=== PATIENT | female | born 1995 | race Hispanic/Latino ===

== ENCOUNTER 2017-03-06 19:28 | Inpatient (IN) | payer MEDICAID ==
[~2017-03-06] VITALS: Ht 152.4 cm; Wt 70.3 kg
[2017-03-06 07:49] VITALS: BP 123/70
[2017-03-06] MEDS ORDERED: MORPHINE SULFATE 10 MG/ML 1ML SYG IM PRN (19:45)
[2017-03-06] MEDS ORDERED: PREN-18 PO (19:56)
[2017-03-06] MEDS ORDERED: IRON1TAB63 PO (19:57)
[2017-03-06] MEDS ORDERED: LACTATED RINGERS 1000ML 1,000 ML IV ONE (19:59)
[2017-03-06 20:20] VITALS: BP 110/70
[2017-03-06] MEDS: DINOPROSTONE 10 MG VAGINAL SUPP VG SCH (20:46)
[2017-03-06] MEDS: LACTATED RINGERS 1000ML 1,000 ML IV PRN (20:47)
[2017-03-06 20:58] LABS: MEAN CORPUSCULAR HEMOGLOBIN 32.7 pg (27.0-33.0); MEAN CORPUSCULAR HGB CONC 34.7 g/dL (32.0-36.0); MEAN CORPUSCULAR VOLUME 94.2 fL (79-99); PLATELET COUNT (AUTO) 211 K/uL (130-400); RED CELL DISTRIBUTION WIDTH 13.3 % (11.0-15.5); WHITE BLOOD COUNT (AUTO) 9.8 K/uL (4.8-10.8)
[2017-03-06 21:01] LABS: APPEARANCE,URINE Clear (CLEAR); BILIRUBIN,URINE Negative (NEGATIVE); COLOR,URINE Yellow (YELLOW); GLUCOSE, URINE (UA) Negative (NEGATIVE); KETONES,URINE Negative (NEGATIVE); LEUKOCYTE ESTERASE ,URINE Moderate (NEGATIVE); NITRATE,URINE Negative (NEGATIVE); OCCULT BLOOD,URINE Negative (NEGATIVE); PROTEIN,URINE Negative (NEGATIVE); UROBILINOGEN,URINE 0.2 mg/dL (0.2-1.0)
[2017-03-06 21:21] LABS: BACTERIA,URINE Rare /HPF (None Seen); RBC,URINE 0-1 /HPF (0-1); SQUAMOUS EPITHELIAL CELL,UR Rare /LPF (0-2)
[2017-03-07] MEDS: LACTATED RINGERS 1000ML 1,000 ML IV PRN (03:19)
[2017-03-07 06:59] LABS: RAPID PLASMA REAGIN NONREACTIVE (NONREACTIVE)
[2017-03-07] MEDS ORDERED: OXYTOCIN 10 USP UNITS/ML 20 UNIT in LACTATED RINGERS 1000ML 1,000 ML IV SCH (09:00)
[2017-03-07] MEDS ORDERED: LACTATED RINGERS 1000ML 1,000 ML IV ONE (09:51)
[2017-03-07] MEDS ORDERED: OXYTOCIN 10 USP UNITS/ML ONE ×2 (09:51→21:19)
[2017-03-07] MEDS ORDERED: BUTORPHANOL TARTRATE 2 MG/ML IVP PRN (10:45)
[2017-03-07] MEDS ORDERED: BUTORPHANOL TARTRATE 2 MG/ML ONE (10:52)
[2017-03-07] MEDS ORDERED: EPHEDRINE SULFATE 50 MG/ML AMPULE IVP PRN (12:45)
[2017-03-07] MEDS ORDERED: LACTATED RINGERS 500 ML 500 ML IV PRN (12:45)
[2017-03-07] MEDS ORDERED: NALOXONE HCL 0.4 MG/1 ML ML IV PRN (12:45)
[2017-03-07] MEDS ORDERED: MISOPROSTOL 200 MCG TABLET ONE (17:21)
[2017-03-07] MEDS ORDERED: LIDOCAINE HCL 1% 20 ML VIAL ONE (17:21)
[2017-03-07] MEDS ORDERED: METHYLERGONOVINE MALEATE 0.2 MG/1 ML ML ONE (17:22)
[2017-03-07] MEDS ORDERED: CARBOPROST TROMETHAMINE 250 MCG/ML AMP IM ONE (17:22)
[2017-03-07] MEDS ORDERED: CEFAZOLIN SODIUM 1 GM VIAL ONE (17:37)
[2017-03-07] MEDS ORDERED: CALDOLOR 800MG+NS 250ML 250 ML IV ONE (17:37)
[2017-03-07] MEDS ORDERED: CEFAZOLIN SODIUM 1 GM VIAL IVP PRN (17:45)
[2017-03-07] MEDS ORDERED: LACTATED RINGERS 1000ML 1,000 ML IV SCH (17:45)
[2017-03-07] MEDS ORDERED: MIDAZOLAM HCL 1 MG/ML 2ML VIAL ONE (17:48)
[2017-03-07] MEDS ORDERED: EPHEDRINE-NS PF 50MG/5ML SYRINGE IV ONE (17:49)
[2017-03-07] MEDS ORDERED: DURAMORPH PF1 MG/ML 10ML AMP IV ONE (17:55)
[2017-03-07] MEDS ORDERED: OXYTOCIN 10 UNIT/1ML 10ML VIAL ONE (17:59)
[2017-03-07] MEDS ORDERED: ONDANSETRON HCL 4 MG/2 ML VIAL ONE (18:18)
[2017-03-07] MEDS ORDERED: OXYTOCIN-LR 20 UNITS/1000 ML 1,000 ML IV PRN (18:34)
[2017-03-07] MEDS ORDERED: DEXTROSE 5 %-0.45 % NACL 1,000 ML IV PRN (18:45)
[2017-03-07] MEDS ORDERED: PROMETHAZINE HCL 25 MG/ML 1ML AMPULE IM PRN (18:45)
[2017-03-07] MEDS ORDERED: SODIUM CHLORIDE 0.9% 10 ML VIAL IVP PRN (18:45)
[2017-03-07] MEDS ORDERED: MEPERIDINE-PF 75 MG/ML SYG IM PRN (18:45)
[2017-03-07] MEDS: DINOPROSTONE 10 MG VAGINAL SUPP VG SCH (19:45)
[2017-03-07 20:28] VITALS: BP 150/69
[2017-03-08] VITALS (7 sets, daily range): BP systolic 92–117; BP diastolic 51–73
[2017-03-08] MEDS ORDERED: CALDOLOR 800MG+NS 250ML 250 ML IV ONE (01:58)
[2017-03-08] MEDS: CALDOLOR 800MG+NS 250ML 250 ML IV SCH ×2 (02:00→09:51)
[2017-03-08 04:57] LABS: HEMATOCRIT 25.7 % (36-48); MEAN CORPUSCULAR HGB CONC 34.8 g/dL (32.0-36.0); MEAN CORPUSCULAR VOLUME 94.7 fL (79-99); PLATELET COUNT (AUTO) 152 K/uL (130-400); RED BLOOD CELL COUNT(AUTO) 2.71 MIL/uL (4.00-5.50); RED CELL DISTRIBUTION WIDTH 12.9 % (11.0-15.5); WHITE BLOOD COUNT (AUTO) 12.2 K/uL (4.8-10.8)
[2017-03-08] MEDS ORDERED: BISACODYL 10 MG SUPP.RECT RC PRN (09:30)
[2017-03-08] MEDS ORDERED: DIPHENHYDRAMINE HCL 25 MG CAPSULE PO PRN (09:30)
[2017-03-08] MEDS ORDERED: LANOLIN 30GM OINTMENT TP PRN (09:30)
[2017-03-08] MEDS ORDERED: SIMETHICONE 80 MG TAB.CHEW ONE (09:50)
[2017-03-08] MEDS ORDERED: DOCUSATE SODIUM 100 MG CAP PO ONE (09:51)
[2017-03-08] MEDS: IBUPROFEN 800 MG TAB PO SCH ×2 (10:00→19:32)
[2017-03-08 10:20] LABS: HEPATITIS Bs ANTIGEN SCREEN P Negative (Negative)
[2017-03-08] MEDS: DOCUSATE SODIUM 100 MG CAP PO SCH ×2 (10:56→22:00)
[2017-03-08] MEDS: ACETAMINOPHEN-CODEINE 300/30MG TAB PO PRN ×2 (10:58→17:15)
[2017-03-08] MEDS: SIMETHICONE 80 MG TAB.CHEW PO PRN ×3 (16:43→22:00)
[2017-03-08] MEDS: DINOPROSTONE 10 MG VAGINAL SUPP VG SCH (19:30)
[2017-03-08] MEDS: DIPH,PERTUSS(ACELL),TET VAC/PF 0.5 ML VIAL IM SCH (19:33)
[2017-03-09] MEDS: ACETAMINOPHEN-CODEINE 300/30MG TAB PO PRN ×2 (00:45→03:59)
[2017-03-09] MEDS: IBUPROFEN 800 MG TAB PO SCH ×2 (01:57→09:52)
[2017-03-09 03:55] VITALS: BP 118/73
[2017-03-09 08:15] VITALS: BP 107/68
[2017-03-09] MEDS: DIPH,PERTUSS(ACELL),TET VAC/PF 0.5 ML VIAL IM SCH (09:30)
[2017-03-09] MEDS: DOCUSATE SODIUM 100 MG CAP PO SCH ×2 (09:45→09:51)
[2017-03-09] MEDS: SIMETHICONE 80 MG TAB.CHEW PO PRN (09:51)
[2017-03-09 11:10] VITALS: BP 105/68
== END 2017-03-09 14:20 | disposition home or self-care (01) | DRG 540 ==
LOC: LDH 19:28 → WSH 03-07 21:45
PROC: 3E0234Z Introduction of Serum, Toxoid and Vaccine into Muscle, Percutaneous Approach (ICD-10-PCS; 2017-03-07)
PROC: 10D00Z1 Extraction of Products of Conception, Low, Open Approach (ICD-10-PCS; principal; 2017-03-07 17:46)
DX: O77.9 Labor and delivery complicated by fetal stress, unspecified (principal); O41.03X0 Oligohydramnios, third trimester, not applicable or unspecified; Z37.0 Single live birth; Z3A.40 40 weeks gestation of pregnancy; Z23 Encounter for immunization
CPT/HCPCS: 36415; 59510; 81001; 85027; 86592; 86701; 86850; 86900; 86901; 87340; 87390; 90715; A4344; A4351; A4450; A4606; J0595; J0690; J1741; J2210; J2250; J2274; J2405; J2590; J3490; J7120

== ENCOUNTER 2017-06-24 22:54 | Emergency (ER) | payer MEDICAID, OTHER ==
[~2017-06-24 22:54] MED LIST: IRON1TAB63 PO; PREN-18 PO
[2017-06-24 23:31] LABS: BASOPHILS % (AUTO) 0.8 % (0.0-5.0); EOSINOPHILS % (AUTO) 0.4 % (0.0-8.0); HEMATOCRIT 39.4 % (36-48); LYMPHOCYTES % (AUTO) 4.2 % (21.0-51.0); MEAN CORPUSCULAR HEMOGLOBIN 30.5 pg (27.0-33.0); MEAN CORPUSCULAR HGB CONC 34.8 g/dL (32.0-36.0); MEAN CORPUSCULAR VOLUME 87.6 fL (79-99); MONOCYTES % (AUTO) 3.7 % (3.0-13.0); NEUTROPHILS % (AUTO) 90.9 % (40.0-77.0); PLATELET COUNT (AUTO) 329 K/uL (130-400); RED BLOOD CELL COUNT(AUTO) 4.49 MIL/uL (4.00-5.50); WHITE BLOOD COUNT (AUTO) 10.6 K/uL (4.8-10.8)
[2017-06-24] MEDS ORDERED: ONDANSETRON HCL 4 MG/2 ML VIAL ONE (23:31)
[2017-06-24 23:33] LABS: APPEARANCE,URINE Clear (CLEAR); BILIRUBIN,URINE Negative (NEGATIVE); COLOR,URINE Yellow (YELLOW); GLUCOSE, URINE (UA) Negative (NEGATIVE); KETONES,URINE >=80 mg/dL (NEGATIVE); LEUKOCYTE ESTERASE ,URINE Negative (NEGATIVE); NITRATE,URINE Negative (NEGATIVE); OCCULT BLOOD,URINE Moderate (NEGATIVE); PH,URINE 5.5 (5.0-8.0); PROTEIN,URINE POS 1+ (NEGATIVE); UROBILINOGEN,URINE 0.2 mg/dL (0.2-1.0)
[2017-06-24 23:37] LABS: HCG,QUAL RESULT NEGATIVE (NEGATIVE)
[2017-06-24 23:46] LABS: BACTERIA,URINE Few /HPF (None Seen); MUCUS,URINE Rare LPF (None Seen); SQUAMOUS EPITHELIAL CELL,UR 0-2 /HPF (0-2); WBC,URINE 0-1 /HPF (0-1)
[2017-06-24 23:51] LABS: CREATININE 0.7 mg/dL (0.5-1.5); POTASSIUM 3.7 mmol/L (3.5-5.1)
[2017-06-24 23:56] LABS: ALBUMIN 4.2 g/dL (3.5-5.0); BILIRUBIN,TOTAL 1.3 mg/dL (0.2-1.0); TOTAL PROTEIN, SERUM 8.9 g/dL (6.0-8.3)
[2017-06-24] MEDS ORDERED: KETOROLAC TROMETHAMINE 30MG/ML ONE (23:58)
== END 2017-06-25 00:39 | disposition home or self-care (01) ==
LOC: EDH 22:54
DX: A08.8 Other specified intestinal infections (principal); Z98.890 Other specified postprocedural states
CPT/HCPCS: 36415; 80053; 81001; 81025; 82150; 83690; 85025; 96374; 96375; 99284; J1885; J2405

== ENCOUNTER 2018-11-23 12:00 | Inpatient (IN) | payer MEDICAID ==
[~2018-11-23] VITALS: Ht 152.4 cm; Wt 74.8 kg
[2018-11-23 14:33] LABS: HEMATOCRIT 33.7 % (36-48); MEAN CORPUSCULAR HEMOGLOBIN 31.4 pg (27.0-33.0); MEAN CORPUSCULAR HGB CONC 34.8 g/dL (32.0-36.0); MEAN CORPUSCULAR VOLUME 90.1 fL (79-99); PLATELET COUNT (AUTO) 214 K/uL (130-400); RED BLOOD CELL COUNT(AUTO) 3.74 MIL/uL (4.00-5.50); RED CELL DISTRIBUTION WIDTH 15.4 % (11.0-15.5); WHITE BLOOD COUNT (AUTO) 7.8 K/uL (4.8-10.8)
[2018-11-24] MEDS ORDERED: CEFAZOLIN SODIUM 1 GM VIAL IVP PRN (05:45)
[2018-11-24] MEDS ORDERED: CALDOLOR 800MG+NS 250ML 250 ML IV PRN (05:45)
[2018-11-24] MEDS ORDERED: LACTATED RINGERS 1000ML 1,000 ML IV SCH (05:45)
[2018-11-24] MEDS ORDERED: OXYTOCIN 10 USP UNITS/ML ONE ×2 (07:29→08:00)
[2018-11-24] MEDS ORDERED: METOCLOPRAMIDE 10 MG/2 ML VIAL IVP SCH (08:00)
[2018-11-24] MEDS ORDERED: CITRIC ACID/SODIUM CITRATE 30 ML UDCUP PO SCH (08:00)
[2018-11-24] MEDS ORDERED: DURAMORPH PF1 MG/ML 10ML AMP IV ONE (08:00)
[2018-11-24] MEDS ORDERED: ONDANSETRON HCL 4 MG/2 ML VIAL ONE (08:00)
[2018-11-24 08:12] LABS: HEPATITIS Bs ANTIGEN SCREEN P Negative (Negative)
[2018-11-24] MEDS ORDERED: CEFAZOLIN SODIUM 1 GM VIAL IVP ONE (10:00)
[2018-11-24] MEDS ORDERED: EPHEDRINE SULFATE 50 MG/ML AMPULE ONE (10:26)
[2018-11-24] MEDS ORDERED: CEFAZOLIN 3GM /D5W 100ML 100 ML IV SCH (11:15)
[2018-11-24] MEDS ORDERED: OXYTOCIN-LR 20 UNITS/1000 ML 1,000 ML IV PRN (11:15)
[2018-11-24] MEDS ORDERED: MEPERIDINE-PF 75 MG/ML SYG IM PRN (11:15)
[2018-11-24] MEDS ORDERED: PROMETHAZINE HCL 25 MG/ML 1ML AMPULE IM PRN (11:15)
[2018-11-24] MEDS ORDERED: SODIUM CHLORIDE 0.9% 10 ML VIAL IVP PRN (11:15)
[2018-11-24 13:11] LABS: APPEARANCE,URINE Clear (CLEAR); BILIRUBIN,URINE Negative (NEGATIVE); COLOR,URINE Yellow (YELLOW); GLUCOSE, URINE (UA) Negative (NEGATIVE); KETONES,URINE 15 mg/dL (NEGATIVE); LEUKOCYTE ESTERASE ,URINE Negative (NEGATIVE); NITRATE,URINE Negative (NEGATIVE); OCCULT BLOOD,URINE Negative (NEGATIVE); PH,URINE 7.5 (5.0-8.0); PROTEIN,URINE Negative (NEGATIVE); UROBILINOGEN,URINE 0.2 mg/dL (0.2-1.0)
[2018-11-24 13:20] LABS: AMPHET/METH SCREEN,URINE NEGATIVE (NEGATIVE); BARBITURATE SCREEN, URINE NEGATIVE (NEGATIVE); BENZODIAZEPINES SCREEN,URINE NEGATIVE (NEGATIVE); CANNABINOID SCREEN,URINE NEGATIVE (NEGATIVE); COCAINE SCREEN,URINE NEGATIVE (NEGATIVE); OPIATE SCREEN,URINE NEGATIVE (NEGATIVE); PHENCYCLIDINE SCREEN,URINE NEGATIVE (NEGATIVE)
[2018-11-24 14:14] VITALS: BP 122/71
--- NOTE | 2018-11-24 14:15 | NUR ---
REPORT RECEIVED FROM Fany PEREZ RN AND PATIENT TRANSFERED VIA BED IN STABLE CONDITION. PATIENT DENIES PAIN AND NO BLEEDING NOTED ON ASSESSMENT. F/C DRAINING CLEAR YELLOW URINE.
--- NOTE | 2018-11-24 15:51 | NUR ---
DCP CM met with pt and spouse discussed dc plans. Pt is independent prior to admission, lives at home with spouse and 1 minor 1yr and 9 mos. Denies any equipments/services. Pt feels safe to go back home, still works and drives, spouse able to assist with transportation and needs as necessary. Pt made aware for SW trigger hx of drug use, negative during admission. Pt verbalized she did use it a long time ago, but does not currently use it, also has no intention of using on dc, spouse verbalized he doesn't use drugs, pt has good support system in place. Family members able to assist with any assistance needed. Pt given [employer] packet. Safe to dc home once stable via private car. Primary nurse aware. CM to cont to follow up. Addendum: 11/24/18 at 1621 by MARGA CASTRO LVN CM Amended: Links added.
[2018-11-24] MEDS: DEXTROSE 5 %-0.45 % NACL 1,000 ML IV PRN (18:15)
[2018-11-24 19:15] VITALS: BP 99/49
--- NOTE | 2018-11-24 19:35 | NUR ---
Patient: Patient received awake in bed with baby in her arms was baby. IV fluids D5 1/2 NS and Ancef 3 gm IVPB infusing. Land Catheter patent flowing clear yellow urine. Plan of care discussed with patient verbalizes understanding.
[2018-11-24] MEDS: CALDOLOR 800MG+NS 250ML 250 ML IV SCH (19:36)
[2018-11-24 23:20] VITALS: BP 98/43
--- NOTE | 2018-11-25 03:10 | NUR ---
Communication: Pharmacist called informed that Ancef 3 gm bag number 2 needed but was discontinued. He advice to enter an order one more dose. Order entered.
[2018-11-25] MEDS: CALDOLOR 800MG+NS 250ML 250 ML IV SCH (03:23)
[2018-11-25] MEDS: DEXTROSE 5 %-0.45 % NACL 1,000 ML IV PRN (03:24)
[2018-11-25 03:25] VITALS: BP 104/65
--- NOTE | 2018-11-25 03:55 | NUR ---
Ancef 2 gm please refer to EMAR prior to Surgery.
--- NOTE | 2018-11-25 03:55 | NUR ---
Laura care: Laura done By Leela Ayoub CNA noted Perineum are swolen denies any allergy to Latex. Ice pack applied to perineum.
[2018-11-25] MEDS ORDERED: CEFAZOLIN 3GM /D5W 100ML 100 ML IV ONE (04:00)
--- NOTE | 2018-11-25 06:20 | NUR ---
Land Catheter discontinued: Patient informed to call for help the first time she gets up to the bathroom. Patient verbalizes understanding.
[2018-11-25 07:11] LABS: HEMATOCRIT 28.4 % (36-48); MEAN CORPUSCULAR HEMOGLOBIN 30.2 pg (27.0-33.0); MEAN CORPUSCULAR HGB CONC 33.4 g/dL (32.0-36.0); MEAN CORPUSCULAR VOLUME 90.3 fL (79-99); PLATELET COUNT (AUTO) 164 K/uL (130-400); RED BLOOD CELL COUNT(AUTO) 3.15 MIL/uL (4.00-5.50); RED CELL DISTRIBUTION WIDTH 15.5 % (11.0-15.5); WHITE BLOOD COUNT (AUTO) 9.8 K/uL (4.8-10.8)
[2018-11-25 07:40] VITALS: BP 102/62
[2018-11-25] MEDS: IBUPROFEN 800 MG TAB PO SCH ×2 (10:55→18:26)
[2018-11-25] MEDS ORDERED: DIPH,PERTUSS(ACELL),TET VAC/PF 0.5 ML VIAL IM SCH (11:30)
[2018-11-25] MEDS ORDERED: LANOLIN 30GM OINTMENT TP PRN (11:30)
[2018-11-25] MEDS ORDERED: BISACODYL 10 MG SUPP.RECT RC PRN (11:30)
[2018-11-25 12:19] VITALS: BP 89/48
[2018-11-25] MEDS: SIMETHICONE 80 MG TAB.CHEW PO PRN ×3 (13:08→20:37)
[2018-11-25] MEDS: ACETAMINOPHEN-CODEINE 300/30MG TAB PO PRN ×2 (15:03→20:39)
[2018-11-25 16:00] VITALS: BP 121/71
[2018-11-25 19:20] VITALS: BP 120/76
[2018-11-25] MEDS: DOCUSATE SODIUM 100 MG CAP PO SCH (20:37)
[2018-11-25 23:10] VITALS: BP 105/57
[2018-11-26 03:10] VITALS: BP 116/69
[2018-11-26] MEDS: IBUPROFEN 800 MG TAB PO SCH ×2 (03:10→12:07)
[2018-11-26] MEDS: ACETAMINOPHEN-CODEINE 300/30MG TAB PO PRN (06:31)
[2018-11-26 07:08] VITALS: BP 122/66
[2018-11-26] MEDS: SIMETHICONE 80 MG TAB.CHEW PO PRN (09:06)
[2018-11-26] MEDS: DOCUSATE SODIUM 100 MG CAP PO SCH (09:06)
--- NOTE | 2018-11-26 11:00 | NUR ---
DR. ALEJO ROUNDED AND DISCHARGED PATIENT TO HOME. PATIENT IS STABLE AND ASSESSED INCISION AND NO DRAINAGE, REDNESS OR EDEMA NOTE.
[2018-11-26 11:35] VITALS: BP 108/69
--- NOTE | 2018-11-26 12:15 | NUR ---
DISCHARGE INSTRUCTIONS GIVEN AND PATIENT VERBALIZED UNDERSTANDING MEDICATIONS ON SCRIPT. DOSAGE AND FREQUENCY OF MEDICATIONS DISCUSSED WITH PATIENT AND REINFORCED INCISIONAL CARE AFTER DISCHARGE.
--- NOTE | 2018-11-26 13:15 | NUR ---
PATIENT WAS TAKEN VIA W/C TO [facility] IN [place] AND WAS DISCHARGED TO HER SPOUSE IN STABLE CONDITION.
== END 2018-11-26 13:15 | disposition home or self-care (01) | DRG 540 ==
LOC: EDSTATUS 12:00 → LDH 11-24 05:33 → WSH 11-24 14:30
PROC: 3E02340 Introduction of Influenza Vaccine into Muscle, Percutaneous Approach (ICD-10-PCS; 2018-11-24)
PROC: 10D00Z1 Extraction of Products of Conception, Low, Open Approach (ICD-10-PCS; principal; 2018-11-24 09:00)
DX: O34.211 Maternal care for low transverse scar from previous cesarean delivery (principal); D50.9 Iron deficiency anemia, unspecified; Z23 Encounter for immunization; Z37.0 Single live birth; Z3A.39 39 weeks gestation of pregnancy; O99.02 Anemia complicating childbirth
CPT/HCPCS: 36415; 59510; 80305; 81003; 85027; 86592; 86850; 86900; 86901; 87340; 90715; A4344; A4606; G0378; J0690; J1741; J2274; J2405; J2590; J2765; J3490; J7120

== ENCOUNTER → 2020-02-26 | Outpatient (CLI) | payer MEDICAID ==
[~2020-02-26] MED LIST changes: +CALC750T4 PO
== END | disposition home or self-care (01) ==
LOC: DAH 10:00 → EDSTATUS 02-28 07:30
PROVIDERS: ATTEND Specialist
DX: Z20.828 Contact with and (suspected) exposure to other viral communicable diseases (principal)
CPT/HCPCS: C9803; U0003

== ENCOUNTER 2020-02-27 18:07 | Inpatient (IN) | payer MEDICAID ==
[~2020-02-27] VITALS: Ht 152.4 cm; Wt 77.1 kg
[~2020-02-27 18:07] MED LIST changes: -CALC750T4 PO
[2020-02-27 18:20] VITALS: BP 117/78
[2020-02-27] MEDS ORDERED: LACTATED RINGERS 1000ML 1,000 ML IV SCH ×2 (18:30)
[2020-02-27] MEDS ORDERED: CEFAZOLIN SODIUM 1 GM VIAL IVP PRN (18:30)
[2020-02-27 18:49] LABS: AMPHET/METH SCREEN,URINE NEGATIVE (NEGATIVE); BARBITURATE SCREEN, URINE NEGATIVE (NEGATIVE); BENZODIAZEPINES SCREEN,URINE NEGATIVE (NEGATIVE); CANNABINOID SCREEN,URINE NEGATIVE (NEGATIVE); COCAINE SCREEN,URINE NEGATIVE (NEGATIVE); OPIATE SCREEN,URINE NEGATIVE (NEGATIVE); PHENCYCLIDINE SCREEN,URINE NEGATIVE (NEGATIVE)
[2020-02-27] MEDS ORDERED: WATER FOR INJECTION,STERILE 5 ML VIAL ONE (19:09)
[2020-02-27] MEDS ORDERED: OXYTOCIN 10 UNIT/1ML 10ML VIAL ONE (19:43)
[2020-02-27] MEDS ORDERED: DEXAMETHASONE SOD PHOSPHATE 10MG/ML 1ML VIAL ONE (19:43)
[2020-02-27] MEDS ORDERED: PHENYLEPHRINE HCL 10 MG/ML 1ML VIAL IV ONE (19:43)
[2020-02-27] MEDS ORDERED: MORPHINE PF 100MG/10ML AMP IV ONE (19:44)
[2020-02-27] MEDS ORDERED: ONDANSETRON 4MG INJ ONE (19:44)
[2020-02-27] MEDS ORDERED: EPHEDRINE SULFATE 50 MG/ML AMPULE ONE (19:44)
[2020-02-27 19:47] LABS: HEMATOCRIT 32.6 % (36-48); MEAN CORPUSCULAR HEMOGLOBIN 31.1 pg (27.0-33.0); MEAN CORPUSCULAR HGB CONC 34.4 g/dL (32.0-36.0); MEAN CORPUSCULAR VOLUME 90.6 fL (79-99); RED BLOOD CELL COUNT(AUTO) 3.6 MIL/uL (4.00-5.50); RED CELL DISTRIBUTION WIDTH 13.7 % (11.0-15.5); WHITE BLOOD COUNT (AUTO) 10.5 K/uL (4.8-10.8)
[2020-02-27] MEDS ORDERED: OXYTOCIN-LR 20 UNITS/1000 ML 1,000 ML IV ONE (20:37)
[2020-02-27] MEDS ORDERED: 0.9%NACL 10ML VIAL IVP PRN (21:00)
[2020-02-27] MEDS ORDERED: MEPERIDINE-PF 75 MG/ML SYG IM PRN (21:00)
[2020-02-27] MEDS ORDERED: DEXTROSE 5 %-0.45 % NACL 1,000 ML IV PRN (21:00)
[2020-02-27] MEDS ORDERED: OXYTOCIN-LR 20 UNITS/1000 ML 1,000 ML IV PRN (21:00)
[2020-02-27] MEDS ORDERED: PROMETHAZINE HCL 25 MG/ML 1ML AMPULE IM PRN (21:00)
[2020-02-28] VITALS (7 sets, daily range): BP systolic 98–112; BP diastolic 55–74
[2020-02-28] MEDS ORDERED: CALC750T4 PO (06:14)
[2020-02-28 06:54] LABS: HEMATOCRIT 28.3 % (36-48); MEAN CORPUSCULAR HEMOGLOBIN 30.7 pg (27.0-33.0); MEAN CORPUSCULAR HGB CONC 33.6 g/dL (32.0-36.0); MEAN CORPUSCULAR VOLUME 91.6 fL (79-99); RED BLOOD CELL COUNT(AUTO) 3.09 MIL/uL (4.00-5.50); RED CELL DISTRIBUTION WIDTH 13.5 % (11.0-15.5); WHITE BLOOD COUNT (AUTO) 16.1 K/uL (4.8-10.8)
[2020-02-28] MEDS ORDERED: LANOLIN 30GM OINTMENT TP PRN (08:45)
[2020-02-28] MEDS ORDERED: BISACODYL 10 MG SUPP.RECT RC PRN (08:45)
[2020-02-28] MEDS ORDERED: HYDROCODONE/ACETAMINOPHEN 5/325 MG TAB PO PRN (08:45)
[2020-02-28] MEDS ORDERED: ACETAMINOPHEN 500 MG TABLET PO PRN (08:45)
[2020-02-28] MEDS: SIMETHICONE 80 MG TAB.CHEW PO PRN ×2 (08:54→20:50)
[2020-02-28] MEDS: DOCUSATE SODIUM 100 MG CAP PO SCH ×2 (08:54→20:50)
[2020-02-28] MEDS: IBUPROFEN 600 MG TABLET PO PRN ×2 (08:55→16:20)
[2020-02-29] MEDS: ACETAMINOPHEN WITH CODEINE 1 TAB TAB PO PRN ×2 (02:02→08:13)
[2020-02-29 03:51] VITALS: BP 105/51
[2020-02-29 04:09] LABS: HEPATITIS Bs ANTIGEN SCREEN P Negative (Negative)
[2020-02-29 07:15] VITALS: BP 112/70
[2020-02-29] MEDS: DOCUSATE SODIUM 100 MG CAP PO SCH (08:04)
[2020-02-29] MEDS: SIMETHICONE 80 MG TAB.CHEW PO PRN ×2 (08:04→15:09)
[2020-02-29] MEDS: IBUPROFEN 600 MG TABLET PO PRN ×2 (08:06→15:09)
[2020-02-29 11:20] VITALS: BP 99/64
== END 2020-02-29 16:05 | disposition home or self-care (01) | DRG 540 ==
LOC: EDH 18:07 → LDH 18:14 → OBSVTOIN 18:14 → WSH 02-28 00:30
PROVIDERS: ADMIT Specialist; ATTEND Specialist
PROC: 0UB70ZZ Excision of Bilateral Fallopian Tubes, Open Approach (ICD-10-PCS; 2020-02-27)
PROC: 10D00Z1 Extraction of Products of Conception, Low, Open Approach (ICD-10-PCS; principal; 2020-02-27 20:05)
PROC: 3E0234Z Introduction of Serum, Toxoid and Vaccine into Muscle, Percutaneous Approach (ICD-10-PCS; 2020-02-28)
DX: O34.211 Maternal care for low transverse scar from previous cesarean delivery (principal); O26.893 Other specified pregnancy related conditions, third trimester; Z3A.39 39 weeks gestation of pregnancy; Z37.0 Single live birth; Z30.2 Encounter for sterilization; Z67.21 Type B blood, Rh negative
CPT/HCPCS: 36415; 59510; 80305; 83033; 85027; 86592; 86850; 86900; 86901; 87340; 88302; A4344; C9803; G0378; J0690; J1100; J2274; J2370; J2405; J2590; J2791; J3490; J7120; U0003

== ENCOUNTER 2020-09-22 07:07 | Day surgery (SDC) | payer MEDICAID ==
[2020-09-16 11:10] LABS: BASOPHILS % (AUTO) 0.2 % (0.0-5.0); EOSINOPHILS % (AUTO) 1.5 % (0.0-8.0); HEMATOCRIT 41.4 % (36-48); LYMPHOCYTES % (AUTO) 26.2 % (21.0-51.0); MEAN CORPUSCULAR HEMOGLOBIN 30.4 pg (27.0-33.0); MEAN CORPUSCULAR HGB CONC 33.1 g/dL (32.0-36.0); MEAN CORPUSCULAR VOLUME 91.8 fL (79-99); MONOCYTES % (AUTO) 6.7 % (3.0-13.0); NEUTROPHILS % (AUTO) 65.2 % (40.0-77.0); PLATELET COUNT (AUTO) 290 K/uL (130-400); RED BLOOD CELL COUNT(AUTO) 4.51 MIL/uL (4.00-5.50); RED CELL DISTRIBUTION WIDTH 14.3 % (11.0-15.5); WHITE BLOOD COUNT (AUTO) 8.6 K/uL (4.8-10.8)
[2020-09-19 10:09] VITALS: BP 116/65
[2020-09-22] VITALS (24 sets, daily range): BP systolic 116–155; BP diastolic 58–86
[~2020-09-22] VITALS: Ht 152.4 cm; Wt 68.3 kg
[2020-09-22] MEDS ORDERED: LACTATED RINGERS 1000ML 1,000 ML IV ONE (07:14)
[2020-09-22] MEDS ORDERED: VASOPRESSIN 20 UNITS/ML 1ML VIAL ONE (07:23)
[2020-09-22] MEDS ORDERED: STRONG IODINE SOLN 14ML BOTTLE ONE (07:46)
[2020-09-22] MEDS ORDERED: MIDAZOLAM HCL 1 MG/ML 2ML VIAL ONE (07:51)
[2020-09-22] MEDS ORDERED: LIDOCAINE PF 100MG/5ML (2%) SYRINGE 5ML ONE (07:51)
[2020-09-22] MEDS ORDERED: PROPOFOL 10 MG/ML 20ML VIAL IV ONE (07:51)
[2020-09-22] MEDS ORDERED: ROCURONIUM 10MG/1ML SYR 10 MG/ML ML ONE (07:51)
[2020-09-22] MEDS ORDERED: MEPERIDINE-PF 25 MG/ML SYG ONE ×3 (07:52→09:43)
[2020-09-22] MEDS ORDERED: FENTANYL CITRATE PF 50 MCG/1 ML 2ML VIAL ONE (08:19)
[2020-09-22] MEDS ORDERED: ONDANSETRON 4MG INJ ONE (09:02)
[2020-09-22] MEDS ORDERED: METOCLOPRAMIDE 10 MG/2 ML VIAL ONE (09:14)
== END 2020-09-22 10:55 | disposition home or self-care (01) ==
LOC: DAH 07:07
PROVIDERS: ATTEND Specialist
DX: D06.7 Carcinoma in situ of other parts of cervix (principal); Z20.822 Contact with and (suspected) exposure to COVID-19; Z98.51 Tubal ligation status; Z98.891 History of uterine scar from previous surgery
CPT/HCPCS: 36415; 57520; 84703; 85025; 87635; 88307; 88342; A4215; A4221; A4222; A4223; A4351; A4663; A6260; C9803; J2175 ×3; J2250; J2405; J2765; J3010; J3490 ×3; J7120; J2001; J2704